=== PATIENT | male | born 1950 | race African-American/Black ===

== ENCOUNTER 2021-04-02 11:00 | Emergency (ER) | payer MEDICARE ==
[~2021-04-02 11:00] MED LIST: ACTOS30 MG PO; AMARYL2 MG PO; AMARYL4 MG PO; ASPIRIN81 MG PO; ELIQUIS5 MG PO; GLUCOPHAGE1000 MG PO; LANTUS100 UNIT/1 SC; LIPITOR20 MG PO; LISINOPRIL-HCT1 EAC1 PO; LOPRESSOR50 MG PO; METFORMIN HCL500 MG PO; PRAVASTATIN SOD20 MG PO; SYNTHROID50 MCG PO; TOPROL XL50 MG PO; TRESIBA FL100 UNIT/1 SC; TRESIBA100 UNIT/1 IJ; TRESIBA100 UNIT/1 SC; TRULICITY1.5 MG/0.5 IJ; VITAMIN D1000 UNI1 PO; XARELTO20 MG PO; ZOFRAN4 MG PO
[2021-04-02 13:47] LABS: BILIRUBIN NEGATIVE (NEGATIVE); BLOOD NEGATIVE Ery/uL (NEGATIVE); CLARITY CLEAR (CLEAR); COLOR YELLOW (YELLOW); GLUCOSE (U) 3+ mg/dL (NORMAL); LEUKOCYTES NEGATIVE Leu/uL (NEGATIVE); NITRITE NEGATIVE (NEGATIVE); PROTEIN NEGATIVE (NEGATIVE); SPECIFIC GRAVITY 1.025 (1.001-1.030); UROBILINOGEN 0.2 mg/dL (0.2-1.0); pH 5.5 (5.0-9.0)
[2021-04-02 13:48] LABS: BASOPHIL 0.7 % (0-2); EOSINOPHIL 0.8 % (0-7); HCT 44.2 % (42.0-52.0); HGB 13.9 g/dl (13.2-18.0); LYMPHOCYTE 37.5 % (15-48); MCH 26.4 pg (25.0-31.0); MCHC 31.4 g/dL (32.0-36.0); MONOCYTE 6.1 % (0-12); MPV 12.6 fL (6.0-9.5); NEUTROPHIL 54.4 % (41-80); NRBC 0; PLT 127 K/uL (150-400); RBC 5.26 M/uL (4.70-6.00); RDW 15.9 % (11.5-14.0); WBC 5.9 K/uL (4.0-10.5)
[2021-04-02 14:02] LABS: BUN/CREAT RATIO (CALC) 19.4 RATIO; CREATININE 1.03 mg/dL (0.67-1.17); POTASSIUM 4.6 mmol/L (3.5-5.1)
[2021-04-02] MEDS ORDERED: BACLOFEN 10MG T10 MG PO (14:51)
[2021-04-02] MEDS ORDERED: NAPROXEN500 MG PO (14:53)
== END 2021-04-02 15:10 | disposition home or self-care (01) ==
LOC: FER 11:00
PROVIDERS: Nurse Practitioner Family
DX: S29.012A Strain of muscle and tendon of back wall of thorax, initial encounter (principal); E11.65 Type 2 diabetes mellitus with hyperglycemia; I10 Essential (primary) hypertension; Z86.718 Personal history of other venous thrombosis and embolism; X58.XXXA Exposure to other specified factors, initial encounter
CPT/HCPCS: 36415; 80048; 81003; 85025; 99283